=== PATIENT | female | born 1985 | race Caucasian/White ===

== ENCOUNTER 2018-10-09 09:17 | Emergency (ER) | payer MEDICAID ==
[~2018-10-09] VITALS: Ht 162.6 cm; Wt 65.0 kg
[2018-10-09 09:26] VITALS: Ht 162.6 cm; Wt 65.0 kg
[2018-10-09] MEDS ORDERED: METOCLOPRAMIDE 10 MG INJ IV STA (09:36)
[2018-10-09] MEDS ORDERED: SOD CHLORIDE 0.9% 500 ML IV STA (09:36)
[2018-10-09] MEDS ORDERED: LEVETIRACETAM 1000 MG (PMX) 100 ML IVPB STA (09:36)
--- NOTE | 2018-10-09 09:36 | ERD ---
ER Documentation Chief Complaint Chief Complaint seizure tonic clonic witnessed HPI 33y/o female, history of migraine headaches and seizures but noncompliant with medications for over a month and a half presents to the ED via rescue ambulance after a witnessed tonic-clonic seizure lasting less than a minute. Denies urinary or fecal incontinence. Patient reports a mild generalized, gradual onset headache since yesterday consistent with a history of migraines she usually gets after seizure. Patient was lying in bed when the seizure happened and there was no head injury. Denies neck or back pain. Denies visual changes, focal weakness or numbness. No chest pain, palpitations, shortness of breath, cough or URI symptoms. No abdominal pain, nausea or vomiting. No fevers or chills. Denies illicit drug or alcohol use. ROS All systems reviewed and are negative except as per history of present illness. Medications Home Meds Active Scripts Levetiracetam* (Keppra*) 750 Mg Tablet, 750 MG PO BID for 30 Days, TAB 2 Refills Prov:LYNDA BENZ MD 10/09/18 Allergies Allergies: Coded Allergies: No Known Allergy (Unverified , 10/09/18) PMhx/Soc Hx Neurological Disorder: Yes (Seizures, migraine headaches) Hx Respiratory Disorders: No Hx Cardiac Disorders: No Hx Alcohol Use: Yes (Social) Hx Substance Use: No Hx Tobacco Use: Yes Smoking Status: Current every day smoker FmHx No stroke or cancer Physical Exam Vitals Vital Signs Date Temp Pulse Resp B/P (MAP) Pulse Ox O2 O2 Flow FiO2 Time Delivery Rate 10/09/18 95 14 110/63 100 Room Air 14:02 (79) 10/09/18 89 14 115/68 98 Room Air 12:00 (84) 10/09/18 97.9 73 18 124/87 100 09:26 (99) Physical Exam Const: Alert, moderate distress. Head: Atraumatic Eyes: Pupils equal reactive to light, extraocular movements are intact. Normal Conjunctiva no nystagmus.. ENT: Normal External Ears, Nose and Mouth. No intraoral injury. Neck: Full range of motion. Nontender. No meningismus. Resp: Breath sounds are equal and clear to auscultation bilaterally. No rales rhonchi or wheezes. Cardio: Regular rate and rhythm, no murmurs Abd: Soft, non tender, non distended. No rebound or guarding. Normal bowel sounds Skin: No petechiae or rashes Back: No midline or flank tenderness Ext: No cyanosis, or edema Neur: Awake and alert. Cranial nerves II through XII are intact. Motor and sensory equal bilaterally. DTRs are symmetrical. No focal deficit observed. Psych: Anxious but not depressed. Results 24 hrs Laboratory Tests Test 10/09/18 09:31 Serum HCG, Qualitative NEGATIVE Current Medications Medications Dose Sig/Law Start Time Status Last (Trade) Ordered Route PRN Stop Time Admin Dose Reason Admin Sodium 500 ml @ Q1H STAT 10/09/18 DC 10/09/18 Chloride 500 mls/hr IV 09:36 10/09/18 10:14 10:35 100 ml @ ONCE STAT 10/09/18 DC 10/09/18 Levetiracetam 400 mls/hr IVPB 09:36 10/09/18 10:14 09:50 10 mg ONCE STAT 10/09/18 DC 10/09/18 Metoclopramid IV 09:36 10/09/18 10:14 e HCl 09:42 (Reglan) 25 mg ONCE ONCE 10/09/18 DC 10/09/18 Diphenhydrami IV 10:00 10/09/18 10:14 ne HCl 10:01 (Benadryl) Procedures/MDM DOCUMENTS REVIEWED: ED nurse, EMS report LAB INTERPRETATION: Urine test is negative. REEXAMINATION/REEVALUATION: Time: 12:05. Doing well. Headache resolved. No further seizures. Asymptomatic. MEDICAL DECISION MAKINy/o female, history of migraine headaches and seizures but noncompliant with medications for over a month and a half presents to the ED via rescue ambulance after a witnessed tonic-clonic seizure lasting le ss than a minute. Loading dose of Keppra was given. Patient has no signs or symptoms of an occult infectious process. No indication for labs. Patient presents with exacerbation of her regular headache which was resolved with Reglan and Benadryl. Likely migraine headache considering her history. Although CT scan of the brain was considered patient presents with exacerbation of her usual headache which is not consistent with subarachnoid hemorrhage, meningitis, encephalitis or increased intracranial pressure and imaging is not indicated. Stable for discharge with precautionary instructions and outpatient follow-up as counseled. Counseled patient regarding diagnostic workup, diagnosis and need for followup. Understands the importance of medication compliance and need to return to ED if symptoms recur, worsen or any other concerns. Patient understands he is not to drive, operate machinery or engage in any potentially hazardous activity pseudoseizure recur until cleared by her primary care physician or neurologist. A DMV form will be filed. Smoking Cessation Therapy: Pt. was lectured for greater than 3 minutes on the health risks of continued smoking and the benefits of cessation. Departure Diagnosis: Primary Impression: Seizure disorder Additional Impressions: Noncompliance with medication regimen Headache Headache type: unspecified Headache chronicity pattern: episodic headache Intractability: not intractable Qualified Codes: R51 - Headache Condition: Stable (Improved) LYNDA BENZ MD October 09, 2018 09:36
[2018-10-09] MEDS ORDERED: DIPHENHYDRAMINE 50 MG INJ IV ONE (10:00)
[2018-10-09] MEDS ORDERED: LEVE750T70 PO (12:15)
[2018-10-09 14:02] VITALS: BP 110/63; PULSE 95; RESP 14
== END 2018-10-09 14:02 | disposition home or self-care (01) ==
LOC: E/R 09:17
DX: G40.909 Epilepsy, unspecified, not intractable, without status epilepticus (principal); R51 Headache; R40.2142 Coma scale, eyes open, spontaneous, at arrival to emergency department; R40.2362 Coma scale, best motor response, obeys commands, at arrival to emergency department; R40.2252 Coma scale, best verbal response, oriented, at arrival to emergency department; Z91.14 Patient's other noncompliance with medication regimen
CPT/HCPCS: 84703; 96374; 96375; J1200; J1953; J2765; J7040; Z7502